=== PATIENT | male | born 1975 | race Caucasian/White ===

== ENCOUNTER → 2017-01-28 | Outpatient (REF) | payer BC ==
[2017-01-28 16:30] LABS: ALKALINE PHOSPHATASE 61 U/L (45-117); ALT/SGPT 40 U/L (12-78); ANION GAP 7 MEQ/L (8-16); AST/SGOT 17 U/L (15-37); BILIRUBIN,TOTAL 0.4 MG/DL (0.2-1.0); BLOOD UREA NITROGEN 14 MG/DL (7-18); CALCIUM LEVEL 9.1 MG/DL (8.5-10.1); CARBON DIOXIDE LEVEL 26 MEQ/L (21-32); CHLORIDE LEVEL 108 MEQ/L (98-107); CHOLESTEROL LEVEL 130 MG/DL (<200); GLOMERULAR FILTRATION RATE > 60.0 (>60); GLUCOSE, FASTING 100 MG/DL (70-105); POTASSIUM SERUM 4.2 MEQ/L (3.5-5.1); SODIUM LEVEL 141 MEQ/L (136-145); TRIGLYCERIDES LEVEL 109 MG/DL (<150)
[2017-01-28 16:31] LABS: ALBUMIN 4.2 GM/DL (3.2-5.2); ALBUMIN/GLOBULIN RATIO 1.35 (1.00-1.93); TOTAL PROTEIN 7.3 GM/DL (6.4-8.2)
== END ==
LOC: M SFHCLACO 09:52
PROVIDERS: ATTEND Physician Assistant
DX: I10 Essential (primary) hypertension (principal); E78.2 Mixed hyperlipidemia

== ENCOUNTER → 2018-01-04 | Outpatient (REF) | payer BC ==
[2018-01-04 15:48] LABS: ALBUMIN 4.6 GM/DL (3.2-5.2); ALBUMIN/GLOBULIN RATIO 1.59 (1.00-1.93); ALKALINE PHOSPHATASE 62 U/L (45-117); ALT/SGPT 45 U/L (12-78); ANION GAP 5 MEQ/L (8-16); AST/SGOT 21 U/L (7-37); BILIRUBIN,TOTAL 0.5 MG/DL (0.2-1.0); BLOOD UREA NITROGEN 12 MG/DL (7-18); CALCIUM LEVEL 8.9 MG/DL (8.5-10.1); CARBON DIOXIDE LEVEL 31 MEQ/L (21-32); CHLORIDE LEVEL 107 MEQ/L (98-107); CHOLESTEROL LEVEL 132 MG/DL (<200); CREATININE FOR GFR 0.87 MG/DL (0.70-1.30); GLOMERULAR FILTRATION RATE > 60.0 (>60); GLUCOSE, FASTING 85 MG/DL (70-100); HDL CHOLESTEROL 30 MG/DL (>40); LDL CHOLESTEROL 80.4 MG/DL (<100); NON-HDL-C 102 MG/DL; POTASSIUM SERUM 4.8 MEQ/L (3.5-5.1); SODIUM LEVEL 143 MEQ/L (136-145); TOTAL PROTEIN 7.5 GM/DL (6.4-8.2); TRIGLYCERIDES LEVEL 108 MG/DL (<150)
== END ==
LOC: M SFHCLACO 08:50
DX: I10 Essential (primary) hypertension (principal); E78.2 Mixed hyperlipidemia

== ENCOUNTER → 2021-04-01 | Outpatient (CLI) | payer BC ==
--- NOTE | 2021-04-02 14:09 | SLEEPHOME ---
DATE: 04/01/2021 ORDERED BY: YG [facility] home sleep testing was performed due to concern for the obstructive sleep apnea syndrome in this patient with a history of excessive somnolence and non-restorative sleep. There was 9 hours and 48 minutes of data reviewed. There was 5 hours and 15 minutes marked as time in bed. During the interval marked time in bed, there were 72 respiratory events identified of 10 seconds in duration or greater for a respiratory event index of 13.7. The events were obstructive. Baseline pulse rate 83. Pulse ranged was 57 to 101. Baseline saturation was 92%. Saturations fell to 82%, and testing was performed in both the supine and nonsupine positions. IMPRESSION: Abnormal home sleep testing with repetitive respiratory events and oxygen desaturations to 82% with a respiratory event index of 13.7 is consistent with the obstructive sleep apnea syndrome. RECOMMENDATION: The patient should be encouraged to undergo formal sleep evaluation. cc: [place] PANTOJA PA-C
== END ==
LOC: M SLEEP HO 14:37
PROVIDERS: ATTEND Nurse Practitioner Family
DX: G47.33 Obstructive sleep apnea (adult) (pediatric) (principal)

== ENCOUNTER → 2021-05-18 | Outpatient (CLI) | payer BC ==
--- NOTE | 2021-05-19 18:14 | SLEEPCENT ---
DATE: 05/18/2021 ORDERED BY: YG Grey Nocturnal polysomnography was performed for the titration of pressure therapy in this patient with a clinical diagnosis of obstructive sleep apnea syndrome supported by home testing revealing a respiratory event index of 13.7. For testing the patient was fit with a ResMed AirFit F20 full face mask of medium size, 4 cm of water pressure were applied to the circuit, and the lights were extinguished. Six hours and 33 minutes of data were reviewed. There were 309 minutes of sleep identified. Sleep latency was mildly prolonged at 15.5 minutes, REM latency likewise at 127 minutes. Sleep architecture improved significantly later in the study with three cycles. Overall sleep efficiency was 79.6%. The electrocardiogram showed a sinus rhythm with an average heart rate of 70 beats per minute. EEG showed normal waveforms for wake and sleep. Respiratory events were fully palliated with CPAP at a pressure of +8. Some limb activity was noted early in the study. This improved over the course of the test. Limb movement arousal index was 7.9. IMPRESSION: Obstructive sleep apnea syndrome (G47.33). RECOMMENDATION: Nightly use of pressure therapy 8 cm of water. cc: [place] PANTOJA PA-C
== END ==
LOC: M SLEEP 20:00
PROVIDERS: ATTEND Nurse Practitioner Family
DX: G47.33 Obstructive sleep apnea (adult) (pediatric) (principal)

== ENCOUNTER → 2021-12-31 | Outpatient (CLI) | payer BC | LOC: M SLEEP HO 14:48 | PROVIDERS: ATTEND Nurse Practitioner Family | DX: G47.33 Obstructive sleep apnea (adult) (pediatric) (principal) ==